=== PATIENT | female | born 1985 | race Two or more races ===

== ENCOUNTER 2018-03-27 15:26 | Emergency (ER) | payer MEDICAID ==
[~2018-03-27] VITALS: Ht 167.6 cm; Wt 77.1 kg
--- NOTE | 2018-03-27 17:07 | NUR ---
pending MD evaluation, patient is resting comfortably on gurney, NAD, family are at bedside
--- NOTE | 2018-03-27 17:23 | NUR ---
MD is now at bedside & evaluating the patient.
[2018-03-27] MEDS: ONDANSETRON ODT 4 MG TAB.RAPDIS SL ONE (17:30)
[2018-03-27] MEDS ORDERED: ONDANSETRON ODT 4 MG TAB.RAPDIS ONE (17:34)
[2018-03-27 18:02] LABS: *BILIRUBIN,URIN NEGATIVE (NEGATIVE); *BLOOD, URINE 2+ (NEGATIVE); *COLOR,URINE YELLOW (YELLOW); *KETONES,URINE 4+ (NEGATIVE); *PROTEIN,URINE 1+ (NEGATIVE); *UROBILINOGEN,URINE 0.2 E.U./dl (NORMAL); LEUKOCYTE ESTERASE ,URINE NEGATIVE (NEGATIVE); NITRITE, URINE NEGATIVE (NEGATIVE); UGLUCOSE NEGATIVE (NEGATIVE)
[2018-03-27 18:07] LABS: *CLARITY,URINE HAZY (CLEAR)
[2018-03-27 18:09] LABS: BACTERIA,URINE FEW /HPF (NONE SEEN); SQUAMOUS EPITHELIAL CELL,UR MODERATE /HPF (NONE SEEN)
[2018-03-27 18:10] LABS: MUCUS,URINE MANY /LPF (0-FEW)
--- NOTE | 2018-03-27 18:52 | NUR ---
pending official U/S results from radiologist at the moment
--- NOTE | 2018-03-27 19:08 | NUR ---
Copies of the tests were provided. Patient discharged to home in stable conditon. Written and verbal after care instructions given to patient and family. Patient and family verbalized understanding of instructions.
== END 2018-03-27 19:12 | disposition home or self-care (01) ==
LOC: ER 15:27
DX: O21.9 Vomiting of pregnancy, unspecified (principal); O26.891 Other specified pregnancy related conditions, first trimester; R51 Headache; Z3A.08 8 weeks gestation of pregnancy
CPT/HCPCS: 36415; 70030-TC; 86900; 86901; A4663; Q0162

== ENCOUNTER 2018-04-08 18:43 | Emergency (ER) | payer MEDICAID ==
[~2018-04-08] VITALS: Ht 167.6 cm; Wt 77.1 kg
--- NOTE | 2018-04-08 19:05 | NUR ---
[facility] REPORT TO PM SHIFT.
[2018-04-08 19:31] LABS: BASOPHILS # (AUTO) 0.1 K/uL (0.0-8.0); BASOPHILS % (AUTO) 0.5 % (0.0-2.0); EOSINOPHILS # (AUTO) 0.1 K/uL (0.0-0.7); EOSINOPHILS % (AUTO) 1.2 % (0.0-7.0); HEMATOCRIT 38.8 % (31.2-41.9); HEMOGLOBIN 13.4 g/dL (10.9-14.3); LYMPHOCYTES # (AUTO) 2.8 K/uL (20.0-40.0); LYMPHOCYTES % (AUTO) 27.9 % (20.5-51.5); MEAN CORPUSCULAR HEMOGLOBIN 31.8 uug (24.7-32.8); MEAN CORPUSCULAR HGB CONC 34 g/dL (32.3-35.6); MEAN CORPUSCULAR VOLUME 92.3 fL (75.5-95.3); MONOCYTES # (AUTO) 0.7 K/uL (2.0-10.0); MONOCYTES % (AUTO) 6.8 % (0.0-11.0); NEUTROPHILS # (AUTO) 6.4 K/uL (1.8-8.9); NEUTROPHILS % (AUTO) 63.6 % (38.5-71.5); PLATELET COUNT (AUTO) 234 K/uL (179-408); RED BLOOD CELL COUNT(AUTO) 4.21 MIL/uL (3.63-4.92)
--- NOTE | 2018-04-08 19:46 | NUR ---
PT IN BED. PT'S VISITOR AT BEDSIDE. PT IS AAOX4. PT REPORT LMP OF JANUARY 13, 2018. PT REPORTS BEING 10 WKS PREG. PT REPORTS VAG BLEED AND PELVIC PAIN X 2 HRS. PT REPORTS NO CLOTS WITNESSED ON PAD, ONLY BRIGHT RED BLOOD. PT HAS BEEN EVALUATED BY MD GUTIERRES. [employer] TECH CURRENTLY AT BEDSIDE.
--- NOTE | 2018-04-08 20:53 | NUR ---
Patient discharged to home in stable conditon. Written and verbal after care instructions given. Patient verbalizes understanding of instructions. Patient able to ambulate unassisted with a steady gait. Patient left with all personal belongings.
[2018-04-08 20:59] VITALS: BP 98/61
== END 2018-04-08 20:53 | disposition home or self-care (01) ==
LOC: ER 18:46
DX: O20.0 Threatened abortion (principal); Z3A.10 10 weeks gestation of pregnancy
CPT/HCPCS: 36415; 76856; 84702; 85025; 86850; 86900; 86901; 99285; A4663

== ENCOUNTER 2018-06-13 21:19 | Emergency (ER) | payer MEDICAID ==
--- NOTE | 2018-06-13 22:42 | NUR ---
Patient was called several times in a span of 1hr. Patient was not present. Left without being triaged or seen by ERMD
== END 2018-06-13 22:44 | disposition left against medical advice (07) ==
LOC: ER 21:21
DX: Z53.21 Procedure and treatment not carried out due to patient leaving prior to being seen by health care provider (principal)